=== PATIENT | female | born 1970 | race Caucasian/White ===

== ENCOUNTER 2017-02-08 14:20 | Emergency (ER) | payer OTHER ==
--- NOTE | 2017-02-08 14:32 | EDPHY ---
H & P Stated Complaint: coughing up blood/chest tightness HPI/ROS: CHIEF COMPLAINT: Productive cough with blood HISTORY OF PRESENT ILLNESS: This patient is a healthy 47 year old female complaining of cough and associated chest tightness onset this afternoon. She states she was at a children[employer] and had a sudden onset of productive cough with phlegm and blood. She reports associated pain which she describes as feeling like "little daggers". She initially went to urgent care, but was advised to come to the ED. She denies fever, swelling in her legs, calf pain, recent travel , or recent surgery. She had a short episode of deep cough at night 1.5 weeks ago, but denies other signs of recent illness. She states two of her neighbors have had walking pneumonia recently. She is unsure of family cardiac history, as she is adopted. REVIEW OF SYSTEMS: A ten point review of systems was performed and is negative with the exception of the items mentioned in the HPI. Source: Patient Exam Limitations: No limitations - Personal History LMP (Females 10-55): 1-7 Days Ago Current Tetanus/Diphtheria Vaccine: Yes Tetanus Vaccine Date: 2006 - Medical/Surgical History PMH: Denies. Hx Asthma: No Hx Chronic Respiratory Disease: No Hx Diabetes: No Hx Cardiac Disease: No Hx Renal Disease: No Hx Cirrhosis: No Hx Alcoholism: No Hx HIV/AIDS: No Hx Splenectomy or Spleen Trauma: No Other PMH: denies - Social History Smoking Status: Never smoked Additional Social History: Nonsmoker. Alcohol use in moderation. 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 - Physical Exam Exam: General Appearance: Alert. Vital signs reviewed. Blood pressure 145/91. Eyes: Pupils equal and round, no conjunctival injection, no discharge. Anicteric. ENT, Mouth: Mucous membranes are moist, no oropharyngeal erythema or edema. Neck: No lymphadenopathy, supple. Trachea midline. Respiratory: Lungs are clear to auscultation; no wheezes, rales, or rhonchi. Cardiovascular: Regular rate and rhythm; no murmur, rub, or gallop. Gastrointestinal: Abdomen is soft and nontender, no masses or organomegaly, bowel sounds normal. Skin: Warm and dry, no rashes on exposed skin, normal color. Back: Nontender to palpation over the thoracolumbar spine. No CVAT. Extremities: No lower extremity edema, no calf tenderness or swelling. Neurological: Alert and oriented. Moving all four extremities easily and equally. Psychiatric: Normal affect. Constitutional: Initial Vital Signs Temperature (C) 36.8 C 02/08/17 14:26 Heart Rate 79 02/08/17 14:26 Respiratory Rate 18 02/08/17 14:26 Blood Pressure 145/91 H 02/08/17 14:26 O2 Sat (%) 96 02/08/17 14:26 O2 Delivery Mode Room Air Allergies/Adverse Reactions: No Known Allergies Allergy (Unverified 11/28/11 16:18) Home Medications: Medication Instructions Recorded NK [No Known Home Meds] 02/08/17 Medical Decision Making - Diagnostics Imaging Results: Two view CXR viewed by me in PACS. [facility]. Chest CTA reported to me by Dr. Carney. No PE. No pulmonary hemorrhage, mass , pna. Imaging: Discussed imaging studies w/ call center consultant Radiologist ED Course/Re-evaluation: This patient is a 47 year old female presenting with a brief episode of hemoptysis this afternoon. Physical exam is unremarkable. Plan for EKG, chest x- ray, and labs including CBC, CHEM, d-dimer, and troponin. Patient re-evaluated at 4:00 p.m. She is resting comfortably and has not had any further hemoptysis. Her D-dimer is elevated at 2.63. I reviewed her chest x-ray. No acute pulmonary disease. CT angiogram to assess for PE. 16:55 Reassessed patient. Discussed negative CT angiogram. Plan to discharge home in good condition. Return precautions discussed. The patient is comfortable with this plan. Initial BP elevated, improved but not entirely normal on recheck. She is aware and can have this followed up by PCP. It is unclear what caused her to have hemoptysis. She describes forceful coughing and could have a traumatized bronchus. Malignancy is always a concern in this situation, but there is nothing to support a dx of malignancy at this point in time. She has not been ill, does not have a pneumonia (certain organisms can cause hemoptysis--serratia marcescens for example). TB highly unlikely. She does not seem ill, no lung abscess seen on CTA. No known coagulopathy. Differential Diagnosis: I considered differential diagnosis that includes but is not limited to pneumonia, pulmonary embolus, tuberculosis, Rosalinda-Shukla tear. - Data Points Laboratory Results: Laboratory Results 02/08/17 15:10 02/08/17 15:10 Departure - Departure Disposition: Home, Routine, Self-Care Clinical Impression: Hemoptysis Condition: Good Instructions: Hemoptysis (ED) Additional Instructions: 1. Follow up with a primary care physician as needed, unless you have continuing symptoms. We have referred you to our PCP contour sander. 2. Return to the emergency department for chest pain, weakness, nausea, shortness of breath, or other worsening of condition. Referrals: NONE *PRIMARY CARE P,. [Primary Care Provider] - As per Instructions Luisa Santana MD [[facility] [place] Primary Care Provider] - As per Instructions Report Scribed for: Reena Scott Report Scribed by: Leeanne Tijerina Date of Report: 02/08/17 Time of Report: 15:07 Physician Review and Approval Statement: 02/08/17 14:32 Portions of this note were transcribed by the medical administrative. I, Dr. Reena Scott, personally performed the history, physical exam, and medical decision- making; and confirmed the accuracy of the information in the transcribed note.
--- NOTE | 2017-02-08 14:52 | CPEKG ---
Heart Rate: 81 RR Interval: 741 P-R Interval: 156 QRSD Interval: 76 QT Interval: 376 QTC Interval: 437 P [facility] [place]: 59 QRS [facility] [place]: 68 T Wave [facility] [place]: 24 EKG Severity - NORMAL ECG - EKG Impression: SINUS RHYTHM Electronically Signed By: Reena Scott 08-Feb-2017 22:10:40
[2017-02-08 15:18] LABS: % IMMATURE GRANULYOCYTES 0.1 % (0.0-1.1); ABSOLUTE IMMATURE GRANULOCYTES 0.01 10^3/uL (0.00-0.10); ADD DIFF? NO; ADD MORPH? NO; ADD SCAN? NO; ATYPICAL LYMPHOCYTE FLAG 10 (0-99); FRAGMENT RBC FLAG 0 (0-99); HEMATOCRIT 42.9 % (38.0-47.0); HEMOGLOBIN 14.5 g/dL (12.6-16.3); LEFT SHIFT FLG 0 (0-99); LIPEMIA HEMOLYSIS FLAG 90 (0-99); MEAN CELL HEMOGLOBIN 32.2 pg (27.9-34.1); MEAN CELL HEMOGLOBIN CONCENTR. 33.8 g/dL (32.4-36.7); MEAN CELL VOLUME 95.1 fL (81.5-99.8); MEAN PLATELET VOLUME 10.2 fL (8.7-11.7); PLATELET CLUMPS FLAG 0 (0-99); PLATELET COUNT 300 10^3/uL (150-400); RED BLOOD CELL COUNT 4.51 10^6/uL (4.18-5.33); RED CELL DISTRIBUTION WIDTH 12.5 % (11.5-15.2)
[2017-02-08 15:43] LABS: ANION GAP 9 mEq/L (8-16); CALCIUM 9.9 mg/dL (8.5-10.4); CARBON DIOXIDE 26 mEq/l (22-31); CHLORIDE 104 mEq/L (97-110); CREATININE 0.9 mg/dL (0.6-1.0); GLOMERULAR FILTRATION RATE > 60; GLUCOSE 93 mg/dL (70-100); SODIUM 139 mEq/L (134-144)
[2017-02-08 15:55] LABS: TROPONIN I < 0.012 ng/mL (0-0.034)
[2017-02-08] MEDS ORDERED: IOPAMIDOL (ISOVUE 370) 100 ML BTL IV ONE (16:08)
[2017-02-08 17:42] VITALS: BP 123/86; PULSE 84; RESP 20; TEMP 98.8; O2SAT 95
== END 2017-02-08 17:42 | disposition home or self-care (01) ==
DX: R04.2 Hemoptysis (principal)
CPT/HCPCS: Q9967